=== PATIENT | female | born 1990 | race Caucasian/White ===

== ENCOUNTER → 2017-06-06 | Outpatient (CLI) | payer OTHER ==
[2017-06-06 14:06] LABS: ABSOLUTE BASOPHILS # (AUTO) 0.1 10^3/uL (0.0-0.2); ABSOLUTE EOSINOPHILS # (AUTO) 0.1 10^3/uL (0.0-0.6); ABSOLUTE LYMPHOCYTES (AUTO) 2.2 10^3/uL (0.5-4.7); ABSOLUTE MONOCYTES (AUTO) 0.3 10^3/uL (0.1-1.4); ABSOLUTE NEUT (AUTO) 2.8 10^3/uL (1.7-8.2); BASOPHILS % (AUTO) 1.1 % (0-2); EOSINOPHILS % (AUTO) 1.1 % (0-6); HEMATOCRIT 36.7 % (36.0-47.0); HEMOGLOBIN 12.4 g/dL (12.0-15.5); HGB HCT DIFFERENCE 0.5; LYMPHOCYTES % (AUTO) 40.3 % (13-45); MEAN CORPUSCULAR HGB CONC 33.8 g/dL (32.0-36.0); MEAN CORPUSCULAR VOLUME 89 fl (80-97); MONOCYTES % (AUTO) 6.5 % (3-13); RED BLOOD COUNT 4.14 10^6/uL (3.72-5.28); RED CELL DISTRIBUTION WIDTH 11.9 % (11.5-14.0); WHITE BLOOD COUNT 5.4 10^3/uL (4.0-10.5)
[2017-06-06 14:09] LABS: PROTHROMBIN TIME 13.3 SEC (11.4-15.4)
[2017-06-06 14:10] LABS: PARTIAL THROMBOPLASTIN TIME 31.5 SEC (23.5-35.8)
== END ==
LOC: OD 13:16
PROVIDERS: ATTEND Nurse Practitioner Primary Care
DX: O03.6 Delayed or excessive hemorrhage following complete or unspecified spontaneous abortion (principal); N92.6 Irregular menstruation, unspecified
CPT/HCPCS: 36415; 84702; 85025; 85610; 85730

== ENCOUNTER 2017-06-09 09:53 | Day surgery (SDC) | payer OTHER ==
[2017-06-09] MEDS ORDERED: CEFAZOLIN 1 GM/D5W RTU 1 GM/50 ML RTUPB IV ONE (10:05)
[2017-06-09] MEDS ORDERED: MIDAZOLAM 2 MG/2 ML INJ ONE (10:18)
[2017-06-09] MEDS ORDERED: ACETAMINOPHEN 100 ML IV ONE (10:19)
[2017-06-09] MEDS ORDERED: HYDROMORPHONE HCL INJ/PF 2 MG/ML AMPULE ONE (10:19)
[2017-06-09] MEDS ORDERED: PROPOFOL INJ 200 MG/20 ML VIAL IV ONE (10:19)
[2017-06-09] MEDS ORDERED: METOCLOPRAMIDE HCL INJ/PF 10 MG/2 ML SDV ONE (10:37)
[2017-06-09 10:38] LABS: HEMATOCRIT 36.4 % (36.0-47.0); HEMOGLOBIN 12.1 g/dL (12.0-15.5); HGB HCT DIFFERENCE -0.1; MEAN CORPUSCULAR HEMOGLOBIN 29.7 pg (27.0-33.4); MEAN CORPUSCULAR HGB CONC 33.1 g/dL (32.0-36.0); MEAN CORPUSCULAR VOLUME 90 fl (80-97); RED BLOOD COUNT 4.06 10^6/uL (3.72-5.28); RED CELL DISTRIBUTION WIDTH 12.4 % (11.5-14.0); WHITE BLOOD COUNT 5.1 10^3/uL (4.0-10.5)
[2017-06-09] MEDS ORDERED: FAMOTIDINE INJ/PF 20 MG/2 ML SDV IV ONE (10:38)
[2017-06-09] MEDS ORDERED: SCOPOLAMINE HYDROBROMIDE 1.5 MG PATCH.TD72 ONE (10:40)
[2017-06-09 10:50] LABS: ALANINE AMINOTRANSFERASE 28 U/L (9-52); ALBUMIN 4.9 g/dL (3.5-5.0); ALKALINE PHOSPHATASE 66 U/L (38-126); ANION GAP 12 (5-19); ASPARTATE AMINO TRANSFERASE 18 U/L (14-36); BILIRUBIN,DIRECT 0.2 mg/dL (0.0-0.4); BILIRUBIN,TOTAL 0.8 mg/dL (0.2-1.3); BLOOD UREA NITROGEN 8 mg/dL (7-20); CALCIUM 9.4 mg/dL (8.4-10.2); CARBON DIOXIDE 25 mmol/L (22-30); CHLORIDE 107 mmol/L (98-107); CREATININE RESULT 0.68 mg/dL (0.52-1.25); GLUCOSE 87 mg/dL (75-110); POTASSIUM 4.3 mmol/L (3.6-5.0); SODIUM 144.4 mmol/L (137-145); TOTAL PROTEIN 8.6 g/dL (6.3-8.2)
[2017-06-09] MEDS ORDERED: MORPHINE SULFATE 10 MG/ML INJ IV PRN (11:25)
[2017-06-09] MEDS ORDERED: DIPHENHYDRAMINE HCL 50 MG/ML VIAL IV PRN (11:25)
[2017-06-09] MEDS ORDERED: OXYCODONE-ACETAMINOPHEN 5-325 MG TABLET PO PRN ×3 (11:25→12:23)
[2017-06-09] MEDS ORDERED: MEPERIDINE HCL/PF INJ 25 MG/1 ML DISP.SYRIN IV PRN (11:25)
[2017-06-09] MEDS ORDERED: PROMETHAZINE HCL INJ 25 MG/1 ML VIAL IV PRN ×3 (11:25→12:23)
[2017-06-09] MEDS ORDERED: FENTANYL CITRATE INJ/PF 100 MCG/2 ML AMPUL IV PRN ×3 (11:25)
--- NOTE | 2017-06-09 12:09 | OPERATIVE REPORT E ---
Operative Report NAME: YANELI CORONADO : 1990 AGE: 26Y DATE OF SURGERY: 06/09/2017 ROOM: PREOPERATIVE DIAGNOSIS: Post delivery of a 16-week fetus with continued bleeding, dysfunctional. POSTOPERATIVE DIAGNOSIS: Retained placenta. OPERATION: Suction dilation and curettage. SURGEON: NICKI GARIBAY M.D. ANESTHESIA: General. PERTINENT HISTORY AND OPERATIVE FINDINGS: This is a 26-year-old female who had a stillbirth at about 16 weeks back in March and continued to have problems with irregular and at times heavy bleeding. Ultrasounds revealed that there is still some tissue up inside. We thought that she might be able to pass it but, unfortunately, she kept having problems with bleeding and ultimately decided to proceed with a D and C. At the time of surgery, there was some blood in the vagina. The cervix had some blood in it. It was a little bit dilated. The uterus was actually normal size and shape. Adnexa was negative. OPERATIVE PROCEDURE: The patient was brought into the OR and placed on the table in a supine position and inducted under general anesthesia. Following this, she was repositioned in the dorsal lithotomy position, prepped and draped in a sterile fashion. The bladder was emptied with about 30 mL of clear yellow urine. The patient then had a pelvic under anesthesia with the above findings. A bivalved speculum was inserted. It was opened up. The cervix was grasped on the anterior lip with a single tooth tenaculum and was dilated to a #8 Hegar dilator and it was sounded to 8 cm. Having accomplished this, the curved #8 suction curette was gently inserted through the external internal os and carried up to the fundus of the uterus. The suction was then turned on and it was gently then rotated while removing it. It appeared to be membrane coming back as we extracted the suction curette. This was done a second time, and there no evidence of any further tissue. Just to be for completeness' sake, a medium-sized sharp curette was used and curetted the anterior and posterior scales and no further tissue was obtained. This terminated the procedure. The tenaculum was removed. The tenaculum site was inspected and there was no evidence of active bleeding. The bivalved speculum was removed. The patient was placed back in a supine position and anesthesia was discontinued. She tolerated the procedure well and had a probably 25 mL blood loss at the time of surgery. DICTATING PHYSICIAN: NICKI GARIBAY M.D. [id number] PHY#: [id number] ID: [id number] JOB#: [id number] ACCT: [id number] cc:NICKI GARIBAY M.D. >
[2017-06-09] MEDS: PROMETHAZINE HCL INJ 25 MG/1 ML VIAL ONE ×2 (12:25→12:40)
[2017-06-09] MEDS ORDERED: ONDANSETRON HCL INJ/PF 4 MG/2 ML SDV ONE (12:47)
[2017-06-09] MEDS ORDERED: DEXAMETHASONE SOD PHOSPHATE INJ 4 MG/1 ML VIAL ONE (12:47)
[2017-06-09 15:19] VITALS: BP 128/87
== END 2017-06-09 15:10 | disposition home or self-care (01) ==
LOC: OROUT 09:53
PROVIDERS: ATTEND Obstetrics & Gynecology
PROC: 10D17ZZ Extraction of Products of Conception, Retained, Via Natural or Artificial Opening (ICD-10-PCS; principal; 2017-06-09 10:00)
DX: O03.4 Incomplete spontaneous abortion without complication (principal); N92.1 Excessive and frequent menstruation with irregular cycle; N93.8 Other specified abnormal uterine and vaginal bleeding; Z88.2 Allergy status to sulfonamides
CPT/HCPCS: 86900; 86901; 36415; 86870; 86850; 85027; 81025; 80053; 88305 ×2; 59812; J2250; J0690; J1100; J2765; J1170; J2550; J2405; J2704; S0028; J0131; 1965

== ENCOUNTER → 2017-07-13 | Outpatient (CLI) | payer OTHER ==
[2017-07-13 15:38] LABS: HEMATOCRIT 34.5 % (36.0-47.0); HEMOGLOBIN 11.9 g/dL (12.0-15.5); HGB HCT DIFFERENCE 1.2; MEAN CORPUSCULAR HEMOGLOBIN 30.5 pg (27.0-33.4); MEAN CORPUSCULAR HGB CONC 34.5 g/dL (32.0-36.0); MEAN CORPUSCULAR VOLUME 88 fl (80-97); RED BLOOD COUNT 3.91 10^6/uL (3.72-5.28); RED CELL DISTRIBUTION WIDTH 12.9 % (11.5-14.0); WHITE BLOOD COUNT 5.1 10^3/uL (4.0-10.5)
[2017-07-13 16:14] LABS: ERYTHROCYTE SEDIMENTATION RATE 16 mm/hr (0-20)
[2017-07-15 10:38] LABS: DILUTE RUSSELL VIPOR VENOM 33.1 sec (0.0-47.0); PTT-LA 37.8 sec (0.0-51.9); THROMBIN TIME 21.5 sec (0.0-23.0)
[2017-07-15 12:31] LABS: LUPUS PANEL INTERPRETATION Comment: (.)
== END ==
LOC: OD 12:55
PROVIDERS: ATTEND Obstetrics & Gynecology
DX: O72.3 Postpartum coagulation defects (principal); N92.1 Excessive and frequent menstruation with irregular cycle; N93.8 Other specified abnormal uterine and vaginal bleeding
CPT/HCPCS: 36415; 81241; 83520; 85027; 85652; 86038; 86225; 86235; 86430; 88230; 88262

== ENCOUNTER → 2017-08-04 | Outpatient (CLI) | payer OTHER | LOC: OD 13:23 | PROVIDERS: ATTEND Nurse Practitioner Primary Care | DX: N93.8 Other specified abnormal uterine and vaginal bleeding (principal); N92.6 Irregular menstruation, unspecified | CPT/HCPCS: 36415; 84702 ==

== ENCOUNTER → 2017-11-22 | Outpatient (CLI) | payer OTHER | LOC: OD 08:19 | PROVIDERS: ATTEND Nurse Practitioner Primary Care | DX: O09.299 Supervision of pregnancy with other poor reproductive or obstetric history, unspecified trimester (principal) | CPT/HCPCS: 36415; 84702 ==

== ENCOUNTER → 2018-05-10 | Outpatient (CLI) | payer OTHER | LOC: OD 07:57 | PROVIDERS: ATTEND Nurse Practitioner Primary Care | DX: N97.9 Female infertility, unspecified (principal) | CPT/HCPCS: 36415; 82670 ==

== ENCOUNTER 2018-05-26 03:34 | Emergency (ER) | payer OTHER ==
[2018-05-26 03:41] VITALS: BP 107/57
[2018-05-26] MEDS ORDERED: MORPHINE SULFATE 10 MG/ML INJ IV PRN (03:55)
--- NOTE | 2018-05-26 03:55 | ER Document Report ---
ED General - General Chief Complaint: Abdominal Pain Stated Complaint: ABDOMINAL PAIN Time Seen by Provider: 05/26/18 03:37 Mode of Arrival: Medic Information source: Patient Notes: Patient is a 27-year-old female who presents with chief complaint of low abdominal pain. Patient reports that she is seeing a infertility specialist and she had an egg retrieval done on May 23. Patient reports that she has had increasing abdominal swelling and sharp pain with nausea. Patient denies any vomiting, diarrhea or fevers. Patient's reports that tonight the pain became so severe that the patient had a near syncopal episode. Patient reports that she did speak to her infertility specialist, Nyasia olivares in [place] who scheduled for her to have a follow-up appointment with them this morning however patient reports that became pain became so severe so she decided to come to the emergency room. TRAVEL OUTSIDE OF THE [place] IN LAST 30 DAYS: No - Related Data Allergies/Adverse Reactions: Sulfa (Sulfonamide Antibiotics) Allergy (Verified 06/09/17 10:23) Past Medical History - General Information source: Patient - Social History Smoking Status: Never Smoker Frequency of alcohol use: None Drug Abuse: None Lives with: Family Family History: Reviewed & Not Pertinent Patient has suicidal ideation: No Patient has homicidal ideation: No - Medical History Medical History: Negative - Past Medical History Cardiac Medical History: Denies: Hx Coronary Artery Disease, Hx Heart Attack, Hx Hypertension Pulmonary Medical History: Denies: Hx Asthma, Hx Bronchitis, Hx COPD, Hx Pneumonia Neurological Medical History: Denies: Hx Cerebrovascular Accident, Hx Seizures Renal/ Medical History: Denies: Hx Peritoneal Dialysis Musculoskeltal Medical History: Denies Hx Arthritis Surgical Hx: Negative - Immunizations Hx Diphtheria, Pertussis, Tetanus Vaccination: Yes Review of Systems - Review of Systems Constitutional: No symptoms reported EENT: No symptoms reported Cardiovascular: No symptoms reported Respiratory: No symptoms reported Gastrointestinal: See HPI Genitourinary: No symptoms reported Female Genitourinary: No symptoms reported Musculoskeletal: No symptoms reported Skin: No symptoms reported Hematologic/Lymphatic: No symptoms reported Neurological/Psychological: No symptoms reported Physical Exam - Vital signs Vitals: Temp Pulse Resp BP Pulse Ox 99.1 F 66 18 107/57 L 96 05/26/18 03:40 05/26/18 03:40 05/26/18 03:40 05/26/18 03:40 05/26/18 03:40 - Notes Notes: PHYSICAL EXAMINATION: GENERAL: Well-appearing, well-nourished and in no acute distress. HEAD: Atraumatic, normocephalic. EYES: Pupils equal round and reactive to light, extraocular movements intact, conjunctiva are normal. ENT: Nares patent, oropharynx clear without exudates. Moist mucous membranes. NECK: Normal range of motion, supple without lymphadenopathy LUNGS: Breath sounds clear to auscultation bilaterally and equal. No wheezes rales or rhonchi. HEART: Regular rate and rhythm without murmurs ABDOMEN: Abdomen is firm, with moderate distention to lower abdomen bilaterally. Mild tenderness to palpation low abdomen. No rebound, no peritoneal signs. Female : deferred Musculoskeletal: Normal range of motion, no pitting or edema. No cyanosis. NEUROLOGICAL: Cranial nerves grossly intact. Normal speech, normal gait. Normal sensory, motor exams PSYCH: Normal mood, normal affect. SKIN: Warm, Dry, normal turgor, no rashes or lesions noted. Course - Re-evaluation Re-evalutation: Patient is an otherwise healthy 27 year old female who presents with complaints of low abdominal pain post egg retrieval. CBC and CMP are unremarkable. Transvaginal ultrasound reveals ovarian hyperstimulation pattern. Low suspicion of appendicitis as patient has no rebound tenderness, and no peritoneal signs. Pain is to the bilateral lower abdomen. Patient has appointment in a few hours with her fertility specialist. Pain is controlled. Patient will be discharged in stable contion. - Vital Signs Vital signs: Temp Pulse Resp BP Pulse Ox 99.1 F 66 18 107/57 L 96 05/26/18 03:40 05/26/18 03:40 05/26/18 03:40 05/26/18 03:40 05/26/18 03:40 - Laboratory Result Diagrams: 05/26/18 02:50 05/26/18 02:50 Laboratory results interpreted by me: 05/26/18 05/26/18 02:50 02:50 WBC 12.3 H AST 62 H Discharge - Discharge Clinical Impression: Pelvic pain Condition: Stable Disposition: HOME, SELF-CARE Additional Instructions: You are evaluated this morning for pelvic/low abdominal pain. Your blood workup was unremarkable. Your transvaginal ultrasound showed hyperstimulation of both ovaries. A copy of this report has been sent with you as well as a copy of the radiology desk. Please proceed to your appointment this morning at [facility]. Please return to the emergency department if you develop worsening abdominal pain, fever or any other symptoms that are concerning to you. Referrals: BILL GARIBAY NP [Primary Care Provider] - Follow up as needed
[2018-05-26 04:17] LABS: ABSOLUTE BASOPHILS # (AUTO) 0.1 10^3/uL (0.0-0.2); ABSOLUTE LYMPHOCYTES (AUTO) 3.5 10^3/uL (0.5-4.7); ABSOLUTE MONOCYTES (AUTO) 0.7 10^3/uL (0.1-1.4); BASOPHILS % (AUTO) 0.5 % (0-2); EOSINOPHILS % (AUTO) 0.4 % (0-6); HEMATOCRIT 36.3 % (36.0-47.0); HEMOGLOBIN 12.4 g/dL (12.0-15.5); LYMPHOCYTES % (AUTO) 28.3 % (13-45); MEAN CORPUSCULAR HEMOGLOBIN 30.9 pg (27.0-33.4); MEAN CORPUSCULAR HGB CONC 34.1 g/dL (32.0-36.0); MEAN CORPUSCULAR VOLUME 91 fl (80-97); MONOCYTES % (AUTO) 5.4 % (3-13); PLATELET COUNT 248 10^3/uL (150-450); RED BLOOD COUNT 4.01 10^6/uL (3.72-5.28); RED CELL DISTRIBUTION WIDTH 12.8 % (11.5-14.0); SEGMENTED NEUTROPHILS % (AUTO) 65.4 % (42-78); TOTAL CELLS COUNTED % (AUTO) 100 %; WHITE BLOOD COUNT 12.3 10^3/uL (4.0-10.5)
[2018-05-26 04:19] LABS: ALANINE AMINOTRANSFERASE 41 U/L (9-52); ALKALINE PHOSPHATASE 47 U/L (38-126); ANION GAP 13 (5-19); ASPARTATE AMINO TRANSFERASE 62 U/L (14-36); BILIRUBIN,DIRECT 0.3 mg/dL (0.0-0.4); BILIRUBIN,TOTAL 0.3 mg/dL (0.2-1.3); BLOOD UREA NITROGEN 9 mg/dL (7-20); CALCIUM 9.2 mg/dL (8.4-10.2); CARBON DIOXIDE 26 mmol/L (22-30); CHLORIDE 105 mmol/L (98-107); GLUCOSE 85 mg/dL (75-110); POTASSIUM 4.5 mmol/L (3.6-5.0); SODIUM 144.1 mmol/L (137-145); TOTAL PROTEIN 6.9 g/dL (6.3-8.2)
[2018-05-26] MEDS ORDERED: METOCLOPRAMIDE HCL INJ/PF 10 MG/2 ML SDV IV ONE (04:46)
[2018-05-26] MEDS ORDERED: NORMAL SALINE 1000 ML 1,000 ML IV ONE (04:47)
--- NOTE | 2018-05-26 05:14 | RADIOLOGY REPORT (SQ) ---
EXAM DESCRIPTION: US PELVIS COMPLETED DATE/TME: 05/26/2018 03:54 CLINICAL HISTORY: 27 years, Female, low abd pain s/p egg retreival COMPARISON: None. TECHNIQUE: Transvaginal LIMITATIONS: None. FINDINGS: 5 cm, 0.9 cm thick endometrial stripe, 2.8 cm cervical length, small free pelvic fluid, and enlarged ovaries likely due to hyperstimulation. Right ovary measures 10 x 7 x 6 cm and left ovary measures 9 x 9 x 8 cm with normal vascularity. IMPRESSION: Ovarian hyperstimulation pattern.
== END 2018-05-26 05:37 | disposition home or self-care (01) ==
LOC: ER 03:34
DX: R10.2 Pelvic and perineal pain (principal); Z98.890 Other specified postprocedural states; R11.0 Nausea; R55 Syncope and collapse; R14.0 Abdominal distension (gaseous); Z88.2 Allergy status to sulfonamides
CPT/HCPCS: 99284; 96361; 96374; 96375; 36415; 85025; 80053; 76830; 93976; J2765; J2270; J7030

== ENCOUNTER → 2018-06-19 | Outpatient (CLI) | payer OTHER | LOC: OD 12:36 | PROVIDERS: ATTEND Nurse Practitioner Primary Care | DX: N97.9 Female infertility, unspecified (principal) | CPT/HCPCS: 36415; 82670 ==

== ENCOUNTER → 2018-06-29 | Outpatient (CLI) | payer OTHER | LOC: OD 13:06 | PROVIDERS: ATTEND Nurse Practitioner Primary Care | DX: N97.9 Female infertility, unspecified (principal) | CPT/HCPCS: 36415; 82670; 84144 ==

== ENCOUNTER → 2018-07-06 | Outpatient (CLI) | payer OTHER | LOC: OD 10:10 | PROVIDERS: ATTEND Nurse Practitioner Primary Care | DX: E03.9 Hypothyroidism, unspecified (principal) | CPT/HCPCS: 36415; 82670; 84144; 84443 ==

== ENCOUNTER → 2018-07-25 | Outpatient (CLI) | payer OTHER | LOC: OD 11:45 | PROVIDERS: ATTEND Obstetrics & Gynecology Reproductive Endocrinology | DX: Z32.01 Encounter for pregnancy test, result positive (principal) | CPT/HCPCS: 36415; 84144; 84702 ==

== ENCOUNTER → 2018-07-27 | Outpatient (CLI) | payer OTHER | LOC: OD 10:31 | PROVIDERS: ATTEND Obstetrics & Gynecology Reproductive Endocrinology | DX: N97.9 Female infertility, unspecified (principal); Z32.01 Encounter for pregnancy test, result positive | CPT/HCPCS: 36415; 84144; 84702 ==